=== PATIENT | female | born 1955 | race Caucasian/White ===

== ENCOUNTER 2021-05-09 12:11 | Emergency (ER) | payer OTHER ==
[2021-05-09 12:32] VITALS: BP 131/70; PULSE 78; TEMP 98; BMI 18.6
[2021-05-09] MEDS ORDERED: AMPICILLIN NA/SULBACTAM NA 3 GM in SODIUM CHLORIDE 100 ML IVPB ONE (12:37)
[2021-05-09] MEDS ORDERED: AMPICILLIN NA/SULBACTAM NA 3 GM VIAL ONE (12:47)
== END 2021-05-09 14:00 | disposition home or self-care (01) ==
LOC: FER 12:11
DX: S61.552A Open bite of left wrist, initial encounter (principal); L03.114 Cellulitis of left upper limb
CPT/HCPCS: 73110-TC-LT-FY; 99284-25

== ENCOUNTER 2021-05-10 16:40 | Emergency (ER) | payer OTHER ==
[2021-05-10 16:51] VITALS: BP 112/68; PULSE 76; TEMP 98.8; BMI 18.5
== END 2021-05-10 17:04 | disposition home or self-care (01) ==
LOC: SUPCPDRO 16:40 → FER 16:40
DX: Z48.00 Encounter for change or removal of nonsurgical wound dressing (principal)
CPT/HCPCS: 99281-25